=== PATIENT | male | born 1965 | race Caucasian/White ===

== ENCOUNTER → 2016-11-11 | Outpatient (CLI) | payer OTHER ==
[~2016-11-11] MED LIST: LIDOCAINE 1%, 20ML ONE; SODIUM BICARBONATE 4.2%, 5ML ONE
== END | disposition home or self-care (01) ==
LOC: RAD 09:38
PROVIDERS: ATTEND Otolaryngology Otolaryngology/Facial Plastic Surgery
DX: D37.030 Neoplasm of uncertain behavior of the parotid salivary glands (principal); N28.89 Other specified disorders of kidney and ureter; M26.602 Left temporomandibular joint disorder, unspecified
CPT/HCPCS: 76942; J3490

== ENCOUNTER → 2016-11-17 | Outpatient (CLI) | payer OTHER ==
[~2016-11-17] MED LIST changes: -LIDOCAINE 1%, 20ML ONE; +OMNIPAQUE 350 MG/ML, 100ML BOTTLE ONE; -SODIUM BICARBONATE 4.2%, 5ML ONE
== END | disposition home or self-care (01) ==
LOC: CFH 15:17
PROVIDERS: ATTEND Otolaryngology Otolaryngology/Facial Plastic Surgery
DX: D37.030 Neoplasm of uncertain behavior of the parotid salivary glands (principal); J34.1 Cyst and mucocele of nose and nasal sinus
CPT/HCPCS: 70491; Q9967